=== PATIENT | female | born 1985 | race Caucasian/White ===

== ENCOUNTER 2018-03-26 08:51 | Emergency (ER) | payer MEDICAID ==
[~2018-03-26] VITALS: Ht 162.6 cm; Wt 56.5 kg
[2018-03-26 08:56] VITALS: BP 134/62; PULSE 102; RESP 18; TEMP 98.7; O2SAT 100
--- NOTE | 2018-03-26 09:12 | PD ---
HPI Chief Complaint: Oral / Dental Pain or Problem Time Seen by Provider: 09:05 Travel History International Travel<30 days: No Contact w/Intl Traveler<30days: No Traveled to known affect area: No History of Present Illness HPI 32-year-old female presents emergency department evaluation of sore throat that is been present for 4 days. Says that she has left-sided tonsillar pain and enlarged lymph nodes that are tender to palpation. Says she has had fever up to 102 that has been fluctuating since the onset. Says her pain is mild to moderate in severity, nonradiating. Denies stiff neck. Denies nausea, vomiting or diarrhea. She says that she was in the hospital for her son with a viral type of infection but otherwise does not know who she has picked up this infection from [facility] Past Medical History ?: Unknown LMP: Beginning of last month Social History Tobacco Use: No Allergies-Medications (Allergen,Severity, Reaction): Coded Allergies: ibuprofen (Verified Allergy, Unknown, 03/26/18) Reported Meds & Prescriptions Reported Meds & Active Scripts Active Magic Mouthwash Pediatric/Adult Liq (Lidocaine/Diphenhydr/Alum/Mg/Simeth) 60 Ml Susp 5 Ml SWISH-SWAL ACHS 7 Days Each 5mL contains: Diphenydramine 4.5mg, Viscous Lidocaine 2% 10mg, Maalox Advanced Regular Strength 2.7ml Amoxicillin 500 Mg Cap 500 Mg PO BID 10 Days Review of Systems Except as stated in HPI: all other systems reviewed are Neg Physical Exam Narrative GENERAL: Well-nourished, well-developed patient, in mild distress, anxious SKIN: Focused skin assessment warm/dry. No rashes or lesions. HEAD: Normocephalic. Atraumatic. EYES: No scleral icterus. No injection or drainage. THROAT: Left-sided pharyngeal injection with tonsillar exudates and hypertrophy airway is patent. NECK: Supple, trachea midline. No JVD. No meningismus. Left-sided anterior cervical lymphadenopathy CARDIOVASCULAR: Regular rate and rhythm without murmurs, gallops, or rubs. RESPIRATORY: Breath sounds equal bilaterally. No accessory muscle use. No wheezes, rales, or rhonchi MUSCULOSKELETAL: No cyanosis, or edema. BACK: Nontender without obvious deformity. No CVA tenderness. Data Data Last Documented VS Vital Signs Date Time Temp Pulse Resp B/P (MAP) Pulse Ox O2 Delivery O2 Flow Rate FiO2 03/26/18 08:56 98.7 102 18 134/62 (86) 100 Orders Orders Penicillin G Benzathine Inj (Bicillin L- (03/26/18 09:15) [facility] Medical Decision Making Medical Screen Exam Complete: Yes Emergency Medical Condition: Yes Differential Diagnosis Strep pharyngitis, viral pharyngitis, postnasal drip Narrative Course 32-year-old female presents emergency department for evaluation of a sore throat that is been present for days. Says that she has had associated fevers and left-sided anterior cervical lymphadenopathy. Physical exam findings consistent with strep pharyngitis. Centor criteria met for treatment. Amoxicillin for outpatient use. Magic mouthwash for symptomatic relief. Advised that she take all medication as prescribed. Follow with primary care physician within 2-3 days. Diagnosis Primary Impression: Strep pharyngitis Referrals: Primary Care Physician Additional Instructions: Use salt water gargles for symptom relief. Take all antibiotics as prescribed. Continue to drink plenty of fluids with good oral intake. You may use Tylenol or Motrin per package instructions for fever or pain. Follow-up with primary care physician within 2-3 days. If your symptoms persist or worsen return to the emergency department. You are contagious. Avoid close contact with others until your sore throat is resolved. Scripts Uoizssbzexznbvp-Odwuizidg-Ofc-Alum-Simeth Liq (Magic Mouthwash Pediatric/Adult Liq) 60 Ml Susp 5 ML SWISH-SWAL ACHS for Mouth sores for 7 Days, #60 ML 0 Refills Each 5mL contains: Diphenydramine 4.5mg, Viscous Lidocaine 2% 10mg, Maalox Advanced Regular Strength 2.7ml Prov: Chad Gray MD 03/26/18 Amoxicillin (Amoxicillin) 500 Mg Cap 500 MG PO BID for Infection for 10 Days, #20 CAP 0 Refills Prov: Chad Gray MD 03/26/18 Disposition: 01 DISCHARGE HOME Condition: Stable Kerry Albert Mar 26, 2018 09:12
[2018-03-26] MEDS ORDERED: MAGICPED SWISH-SWAL (09:13)
[2018-03-26] MEDS ORDERED: AMOX500C PO (09:13)
[2018-03-26] MEDS ORDERED: PENICILLIN G BENZATHINE 1,200,000 UNITS/2 ML SYRINGE IM ONE (09:15)
[2018-03-26] MEDS ORDERED: AMOXICILLIN (TRIHYDRATE) 500 MG CAP PO ONE (09:30)
== END 2018-03-26 09:33 | disposition home or self-care (01) ==
LOC: NEPK 08:51
DX: J02.0 Streptococcal pharyngitis (principal)
CPT/HCPCS: 99283

== ENCOUNTER 2018-03-28 08:56 | Emergency (ER) | payer MEDICAID ==
[~2018-03-28] VITALS: Ht 162.6 cm; Wt 58.0 kg
[~2018-03-28 08:56] MED LIST: AMOX500C PO; MAGICPED SWISH-SWAL
[2018-03-28 09:10] VITALS: BP 110/54; PULSE 89; RESP 16; TEMP 98.5; O2SAT 98
[2018-03-28] MEDS ORDERED: MAGICADU2 SWISH-SWAL (09:36)
--- NOTE | 2018-03-28 09:40 | PD ---
HPI Chief Complaint: Medication Refill Request Time Seen by Provider: 09:24 Travel History International Travel<30 days: No Contact w/Intl Traveler<30days: No Traveled to known affect area: No History of Present Illness HPI 32-year-old female presents emergency department with ongoing throat pain. Patient was seen on 26 March, and diagnosed with tonsillitis. She was given amoxicillin and Magic mouthwash. Patient states overall she is improving but she is requesting a refill of the Magic mouthwash for pain control. She states her ability to swallow is improved. Fevers improved. She is only 3 days into her antibiotic treatment. She has no other acute complaints. She is allergic to ibuprofen. [facility] Past Medical History ?: Not Social History Tobacco Use: No Allergies-Medications (Allergen,Severity, Reaction): Coded Allergies: ibuprofen (Verified Allergy, Unknown, 03/26/18) Reported Meds & Prescriptions Reported Meds & Active Scripts Active Magic Mouthwash Adult Liq (Multi-Ingredient Mouthwash/Gargle) 120 Ml Susp 5 Ml SWISH-SWAL ACHS Each 5mL contains: Nystatin 200,000units, Diphenhydramine 4.25mg, Viscous Lidocaine 10mg, Batista syrup 0.8 mL Magic Mouthwash Pediatric/Adult Liq (Lidocaine/Diphenhydr/Alum/Mg/Simeth) 60 Ml Susp 5 Ml SWISH-SWAL ACHS 7 Days Each 5mL contains: Diphenydramine 4.5mg, Viscous Lidocaine 2% 10mg, Maalox Advanced Regular Strength 2.7ml Amoxicillin 500 Mg Cap 500 Mg PO BID 10 Days Review of Systems Except as stated in HPI: all other systems reviewed are Neg General / Constitutional: No: Fever Eyes: No: Visual changes HENT: Positive: Sore Throat, No: Headaches Cardiovascular: No: Chest Pain or Discomfort Respiratory: No: Shortness of Breath Gastrointestinal: No: Abdominal Pain Genitourinary: No: Dysuria Musculoskeletal: No: Pain Skin: No Rash Neurologic: No: Weakness Psychiatric: No: Depression Endocrine: No: Polydipsia Hematologic/Lymphatic: No: Easy Bruising Physical Exam Narrative GENERAL: Patient appears in mild distress. SKIN: Warm and dry. Normal color. Normal turgor. HEAD: Atraumatic. Normocephalic. EYES: Pupils equal and round. No scleral icterus. No injection or drainage. ENT: No nasal bleeding or discharge. Mucous membranes pink and moist. TMs are clear bilaterally. Posterior pharynx shows bilateral tonsillitis which appears to be improving. Uvula is midline. No significant abscess noted. NECK: Trachea midline. Supple and nontender. CARDIOVASCULAR: Regular rate and rhythm. RESPIRATORY: No accessory muscle use. Clear to auscultation. Breath sounds equal bilaterally. GASTROINTESTINAL: Abdomen soft, non-tender, nondistended. Hepatic and splenic margins not palpable. MUSCULOSKELETAL: Extremities without clubbing, cyanosis, or edema. No obvious deformities. NEUROLOGICAL: Awake and alert. No obvious cranial nerve deficits. Motor grossly within normal limits. Five out of 5 muscle strength in the arms and legs. Normal speech. PSYCHIATRIC: Appropriate mood and affect; insight and judgment normal. Data Data Last Documented VS Vital Signs Date Time Temp Pulse Resp B/P (MAP) Pulse Ox O2 Delivery O2 Flow Rate FiO2 03/28/18 09:10 98.5 89 16 110/54 (72) 98 MDM Medical Decision Making Medical Screen Exam Complete: Yes Emergency Medical Condition: Yes Medical Record Reviewed: Yes Differential Diagnosis Tonsillitis. Early tonsillar abscess. Need for refill Narrative Course Patient is to continue amoxicillin as previously prescribed. Patient is given a refill of Magic mouthwash with 2 refills as directed. Patient to follow-up as needed Diagnosis Primary Impression: Encounter for medication refill Additional Impression: Tonsillitis Patient Instructions: General Instructions, Tonsillitis (DC) Additional Instructions: Patient is to continue amoxicillin as previously prescribed. Patient is given a refill of Magic mouthwash with 2 refills as directed. Patient to follow-up as needed Med/Other Pt SpecificInfo: Prescription(s) given Scripts Xixbszjl-Wyqvriyjebhblap-Xgaapbhqh Liq (Magic Mouthwash Adult Liq) 120 Ml Susp 5 ML SWISH-SWAL ACHS for Mouth sores, #120 ML 2 Refills Each 5mL contains: Nystatin 200,000units, Diphenhydramine 4.25mg, Viscous Lidocaine 10mg, Batista syrup 0.8 mL Prov: Malachi Alexandre MD 03/28/18 Disposition: 01 DISCHARGE HOME Condition: Stable Shane Rg Mar 28, 2018 09:40
== END 2018-03-28 09:49 | disposition home or self-care (01) ==
LOC: NEPD 08:56
DX: J03.90 Acute tonsillitis, unspecified (principal); Z76.0 Encounter for issue of repeat prescription
CPT/HCPCS: 99281